=== PATIENT | female | born 1970 | race Caucasian/White ===

== ENCOUNTER 2017-05-26 09:33 | Emergency (ER) | payer OTHER ==
[2017-05-26 10:17] VITALS: BP 111/73; PULSE 101; TEMP 99.3; O2SAT 97
--- NOTE | 2017-05-26 10:51 | C.PDOC ---
History Of Present Illness 46 year old female presents to the ER with a complaint of subjective fever, chills, myalgias, and sore throat for the past 2 days. Patient last took tylenol at 0800. Denies any other associated symptoms. SUBJ FEVER CHILLS MYALGIA SORE THROAT X 2 DAYS. S/P TYL @ 0800. NO OTHER ASSOC SX EXAM MILD DIST NONTOXIC HEENT THROAT NEG; B/L EARS NEG; NOSE CLEAR LUNGS CTA B/L NO W/R/R REMAINDER NEG Time Seen by Provider: 05/26/17 10:20 Chief Complaint (Nursing): Fever History Per: Patient History/Exam Limitations: no limitations Onset/Duration Of Symptoms: Days Current Symptoms Are (Timing): Still Present Location Of Pain: Diffuse Myalgias Sick Contacts (Context): None Associated Symptoms: Fever (Subjective), Chills, Sore Throat, Myalgias. denies : Cough, Sputum, Sinus Drainage, Nasal Congestion Ear Symptoms: Bilateral: None Recent travel outside of the [place]: No Past Medical History Reviewed: Historical Data, Nursing Documentation, Vital Signs Vital Signs: Last Vital Signs Temp 99.3 F 05/26/17 10:15 Pulse 101 H 05/26/17 10:15 Resp 18 05/26/17 11:10 BP 111/73 05/26/17 10:15 Pulse Ox 97 05/26/17 10:51 Family History: States: Unknown Family Hx - Social History Hx Alcohol Use: No Hx Substance Use: No - Immunization History Hx Influenza Vaccination: No Hx Pneumococcal Vaccination: No Review Of Systems Except As Marked, All Systems Reviewed And Found Negative. Constitutional: Positive for: Fever (Subjective), Chills ENT: Positive for: Throat Pain. Negative for: Nose Discharge, Nose Congestion Respiratory: Negative for: Cough, Sputum Musculoskeletal: Positive for: Other (Myalgias) Physical Exam - Physical Exam Appears: Non-toxic, Other (Mild distress) Skin: Normal Color, Warm, Dry Head: Atraumatic, Normacephalic Eye(s): bilateral: Normal Inspection Ear(s): Bilateral: Normal Nose: Normal Oral Mucosa: Moist Throat: Normal, No Erythema, No Exudate Neck: Normal, Supple Chest: Symmetrical, No Tenderness Cardiovascular: Rhythm Regular Respiratory: Normal Breath Sounds, No Rales, No Rhonchi, No Wheezing Gastrointestinal/Abdominal: Soft, No Tenderness Neurological/Psych: Oriented x3, Normal Speech ED Course And Treatment O2 Sat by Pulse Oximetry: 97 (room air) Pulse Ox Interpretation: Normal Disposition Counseled Patient/Family Regarding: Diagnosis, Need For Followup, Rx Given - Disposition Referrals: YOUR,PMD [Other] Disposition: HOME/ ROUTINE Disposition Time: 10:51 Condition: IMPROVED Prescriptions: Oseltamivir [Tamiflu] 75 mg PO BID #10 cap Instructions: Influenza (ED) Forms: [facility] (Georgian) - Clinical Impression Clinical Impression: Influenza-like illness - Scribe Statement The provider has reviewed the documentation as recorded by the Scribe Flo Snow All medical record entries made by the Scribe were at my direction and personally dictated by me. I have reviewed the chart and agree that the record accurately reflects my personal performance of the history, physical exam, medical decision making, and the department course for this patient. I have also personally directed, reviewed, and agree with the discharge instructions and disposition.
[2017-05-26 11:11] VITALS: RESP 18
== END 2017-05-26 11:10 | disposition home or self-care (01) ==
LOC: C.ER 09:33
DX: J11.1 Influenza due to unidentified influenza virus with other respiratory manifestations (principal)

== ENCOUNTER 2017-11-08 17:54 | Emergency (ER) | payer OTHER ==
[2017-11-08 18:06] VITALS: TEMP 98.1
[2017-11-08] MEDS ORDERED: Bacitracin 500 Units/gm Oint Foilpak UD TOP ONE (18:29)
[2017-11-08] MEDS ORDERED: Tdap Vaccine 0.5 ml Vial (10-64 yrs) IM ONE ×2 (18:29→18:33)
--- NOTE | 2017-11-08 18:41 | C.PDOC ---
History Of Present Illness 47 y/o female presented to the ED c/o pain to her right wrist. Patient states that a window fell on her wrist 30 minutes prior to arrival. Last tetanus shot was 10 years ago. Patient denies weakness, numbness, Time Seen by Provider: 11/08/17 18:10 Chief Complaint (Nursing): Upper Extremity Problem/Injury Past Medical History Vital Signs: Last Vital Signs Temp 98.1 F 11/08/17 18:02 Pulse 86 11/08/17 18:02 Resp 18 11/08/17 18:02 BP 105/67 11/08/17 18:02 Pulse Ox 96 11/08/17 18:02 Family History: States: Unknown Family Hx - Social History Hx Alcohol Use: No Hx Substance Use: No - Immunization History Hx Tetanus Toxoid Vaccination: No Hx Influenza Vaccination: No Hx Pneumococcal Vaccination: No ED Course And Treatment O2 Sat by Pulse Oximetry: 96 Disposition - Disposition
--- NOTE | 2017-11-08 18:47 | C.PDOC ---
History Of Present Illness 47 y/o female presented to the ED c/o pain to her right wrist. Patient states that a window fell on her wrist 30 minutes prior to arrival. Last tetanus shot was 10 years ago. Patient denies weakness, numbness, tingling. Time Seen by Provider: 11/08/17 18:10 Chief Complaint (Nursing): Upper Extremity Problem/Injury History Per: Patient History/Exam Limitations: no limitations Onset/Duration Of Symptoms: Mins Current Symptoms Are (Timing): Still Present Past Medical History Reviewed: Historical Data, Nursing Documentation, Vital Signs Vital Signs: Last Vital Signs Temp 98.1 F 11/08/17 18:02 Pulse 78 11/08/17 20:00 Resp 16 11/08/17 20:00 BP 110/68 11/08/17 20:00 Pulse Ox 98 11/08/17 20:00 Surgical History: No Surg Hx Family History: States: No Known Family Hx - Social History Hx Alcohol Use: No Hx Substance Use: No - Immunization History Hx Tetanus Toxoid Vaccination: No Hx Influenza Vaccination: No Hx Pneumococcal Vaccination: No Review Of Systems Musculoskeletal: Positive for: Other (Pain in the right wrist.) Neurological: Negative for: Weakness, Numbness Physical Exam - Physical Exam Appears: Non-toxic, No Acute Distress Skin: Warm, Dry, Other (Abrasion to dorsum of right wrist.) Extremity: Normal ROM (wrist right to dorsum), Tenderness (right wrist), Capillary Refill (<2 seconds), Swelling, Other Pulses: Right Radial: Normal Neurological/Psych: Oriented x3, Normal Motor, Normal Sensation ED Course And Treatment O2 Sat by Pulse Oximetry: 96 (RA) Pulse Ox Interpretation: Normal Medical Decision Making Medical Decision Making: Impression: right wrist injury Plan: * Tylenol 650 mg PO * Bacitracin * Tetanus booster * XR right wrist 1937 XR reviewed, no acute fractures or dislocations noted. Patient to be placed in a splint and instructed to follow up with orthopedist. Disposition Counseled Patient/Family Regarding: Studies Performed, Diagnosis, Need For Followup, Rx Given - Disposition Referrals: Dominik Cook III, MD [Staff Provider] - Disposition: HOME/ ROUTINE Disposition Time: 19:49 Condition: GOOD Additional Instructions: Wear wrist splint for comfort, Follow up with Dr Veras; call for appointment. Tylenol for pain. Take off splint several times a day and apply cold compress to swollen area. 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 - Scribe Statement The provider has reviewed the documentation as recorded by the Scribe Yahir Sanders All medical record entries made by the [employer] were at my direction and personally dictated by me. I have reviewed the chart and agree that the record accurately reflects my personal performance of the history, physical exam, medical decision making, and the department course for this patient. I have also personally directed, reviewed, and agree with the discharge instructions and disposition.
[2017-11-08 20:01] VITALS: BP 110/68; PULSE 78; RESP 16
--- NOTE | 2017-11-09 08:40 | RAD ---
Date of service: 11/08/2017 PROCEDURE: Right Wrist Radiographs. HISTORY: window fell on dorsal aspect wrist, pain swell COMPARISON: None. FINDINGS: BONES: No acute fracture or destructive bony lesion appreciated. Navicular bone in particular appears intact. JOINTS: Normal. No dislocation. SOFT TISSUES: Limited dorsal soft tissue edema suggested. OTHER FINDINGS: None. IMPRESSION: No acute fracture dislocation identified. Dorsal soft tissue edema appreciated.
[2017-11-10 18:43] VITALS: O2SAT 96
== END 2017-11-08 20:00 | disposition home or self-care (01) ==
LOC: C.ER 17:54
DX: S60.811A Abrasion of right wrist, initial encounter (principal); W22.8XXA Striking against or struck by other objects, initial encounter